=== PATIENT | female | born 1960 | race African-American/Black ===

== ENCOUNTER 2018-02-08 15:04 | Emergency (ER) | payer OTHER ==
[~2018-02-08] VITALS: Ht 165.1 cm; Wt 127.0 kg
[2018-02-08 15:10] VITALS: BP_SYST 144
[2018-02-08] MEDS ORDERED: fentaNYL CITRATE/PF 100 MCG/2 ML AMP IM ONE (16:00)
[2018-02-08 17:15] VITALS: BP_SYST 134
== END 2018-02-08 17:00 | disposition home or self-care (01) ==
LOC: SED 15:04
DX: T81.31XA Disruption of external operation (surgical) wound, not elsewhere classified, initial encounter (principal); I10 Essential (primary) hypertension; Z90.89 Acquired absence of other organs; Z90.710 Acquired absence of both cervix and uterus; Y83.8 Other surgical procedures as the cause of abnormal reaction of the patient, or of later complication, without mention of misadventure at the time of the procedure; Y92.89 Other specified places as the place of occurrence of the external cause
CPT/HCPCS: 96372; 99283; J3010; J7030

== ENCOUNTER 2020-04-29 09:51 | Emergency (ER) | payer OTHER ==
[~2020-04-29] VITALS: Ht 165.1 cm; Wt 131.1 kg
[~2020-04-29 09:51] MED LIST: ACET500C21 PO; AMLO5TAB4 PO; ASPI-524 PO; CHLO50TA PO; HYDR-1189 PO; PRILOSEC PO; PROBIOTIC; SIMV20TA2 PO; [UNRECOGNIZED DRUG - OTHER] PO
[2020-04-29 10:15] VITALS: BP_SYST 131
--- NOTE | 2020-04-29 10:15 | NUR ---
Patient to ER bed 4 to gown for evaluation. Side rails up. Report given to BARI Jacobsen.
--- NOTE | 2020-04-29 10:16 | NUR ---
Patient came from home for evaluation. She is complaining of abdominal pain and bleeding from her surgical site. Patient reports being discharged from home 2 days ago, she had a small bowel resection and hernia repair from small bowel obstruction.
--- NOTE | 2020-04-29 10:30 | NUR ---
ER Dr. Rodriguez at bedside examining patient.
--- NOTE | 2020-04-29 11:18 | NUR ---
ER Dr. Rodriguez at bedside re-examining patient and giving discharge instructions.
[2020-04-29 11:19] VITALS: BP_SYST 131
--- NOTE | 2020-04-29 11:19 | NUR ---
ER discussed with the patient the results and treatment provided. Patient given written and verbal discharge instructions and verbalized understanding. Opportunity for questions provided and answered. Patient in stable condition, last set of vital signs within normal limits, pain scale 0/10, speaking in full sentences and ambulated with a steady gait upon discharge. ID arm band removed. No Rx given. Patient educated on pain management and to follow up with PMD. Medication side effect fact sheet provided.
== END 2020-04-29 11:19 | disposition home or self-care (01) ==
LOC: SED 09:51
DX: T81.30XA Disruption of wound, unspecified, initial encounter (principal); I10 Essential (primary) hypertension; Z90.710 Acquired absence of both cervix and uterus; Z79.899 Other long term (current) drug therapy; Z79.82 Long term (current) use of aspirin; Y92.89 Other specified places as the place of occurrence of the external cause
CPT/HCPCS: 99281